=== PATIENT | female | born 1980 | race Two or more races ===

== ENCOUNTER 2017-02-05 16:35 | Outpatient (CLI) | payer OTHER ==
[~2017-02-05] VITALS: Ht 156.2 cm; Wt 102.7 kg
[2017-02-05 16:55] VITALS: BP 131/75
[2017-02-05] MEDS ORDERED: METF10002 PO (17:05)
[2017-02-05] MEDS ORDERED: PREN1TAB84 PO (17:06)
[2017-02-05] MEDS ORDERED: INSU200I SQ-INSULIN ×3 (17:08→17:10)
[2017-02-05] MEDS ORDERED: HUM100IN4 SC ×2 (17:12→17:13)
== END 2017-02-05 18:23 | disposition home or self-care (01) ==
LOC: LDOP 16:35
PROVIDERS: ATTEND Obstetrics & Gynecology
DX: O09.893 Supervision of other high risk pregnancies, third trimester (principal); O24.113 Pre-existing type 2 diabetes mellitus, in pregnancy, third trimester; O99.333 Smoking (tobacco) complicating pregnancy, third trimester; F17.200 Nicotine dependence, unspecified, uncomplicated; Z3A.00 Weeks of gestation of pregnancy not specified
CPT/HCPCS: 59025; 99211; G0463

== ENCOUNTER 2019-05-28 18:50 | Emergency (ER) | payer OTHER ==
[~2019-05-28] VITALS: Ht 154.9 cm; Wt 83.1 kg
[~2019-05-28 18:50] MED LIST: DOCU-131 PO; HUM100IN4 SC; IBUP-1222 PO; INSU200I SQ-INSULIN; METF10002 PO; NPH,100I4 SQ-INSULIN; OXYC-302 PO; PREN1TAB84 PO
[2019-05-28] MEDS ORDERED: SODIUM CHLORIDE FLUSH 10ML SYR IVF ONE (19:30)
[2019-05-28 20:30] LABS: BASOPHILS # (AUTO) 0.07 x10^3/uL (0-0.1); BASOPHILS % (AUTO) 1 % (0-1); EOSINOPHILS # (AUTO) 0.26 x10^3/uL (0-0.4); EOSINOPHILS % (AUTO) 3 % (1-7); LYMPHOCYTES # (AUTO) 1.93 x10^3/uL (1-3.4); LYMPHOCYTES % (AUTO) 22 % (22-44); MD NO; MEAN CORPUSCULAR HEMOGLOBIN 30.9 pg (27.0-34.8); MEAN CORPUSCULAR HGB CONC 33.1 g/dL (32.4-35.8); MEAN CORPUSCULAR VOLUME 93.4 fL (80-100); MEAN PLATELET VOLUME 7.9 fL (7.4-10.4); MONOCYTES # (AUTO) 0.47 x10^3/uL (0.2-0.8); MONOCYTES % (AUTO) 5 % (2-9); NEUTROPHILS # (AUTO) 6.12 x10^3/uL (1.8-6.8); NEUTROPHILS % (AUTO) 69 % (42-75); PLATELET COUNT 291 x10^3/uL (130-400); RED BLOOD COUNT 4.56 x10^6/uL (3.82-5.3); RED CELL DISTRIBUTION WIDTH 15.8 % (9.6-15.2)
[2019-05-28 20:39] LABS: ALBUMIN 3.4 g/dL (3.4-5.0); ANION GAP 8 mmol/L (5-15); CALCIUM 8.9 mg/dL (8.5-10.1); CHLORIDE 106 mmol/L (98-107); CREATININE 0.51 mg/dL (0.55-1.02)
--- NOTE | 2019-05-28 21:25 | NUR ---
CALLED FOR REPEAT VS, NO ANSWER.
--- NOTE | 2019-05-28 22:00 | NUR ---
CALLED FOR REPEAT VS, NOT FOUND AT THIS TIME
--- NOTE | 2019-05-28 22:34 | NUR ---
TO [facility] FROM LOBBY. NAOMI.
--- NOTE | 2019-05-28 23:03 | NUR ---
FIRST CONTACT WITH PT. PT HERE WITH COMPLAINT BUMP INSIDE NOSE ONSET 4 DAYS AGO, GIVEN ABX. PT C/O LEFT SIDED FACIAL SWELLING AND PAIN. PT'S AOX4. RESPS EVEN AND UNLABORED. BP/SPO2 MONITORS IN PLACE. CALL LIGHT WITHIN REACH. EDMD AT BEDSIDE TO EVALUATE AT THIS TIME.
--- NOTE | 2019-05-28 23:36 | NUR ---
PT IN CT NOW.
--- NOTE | 2019-05-28 23:55 | NUR ---
PT BACK TO ROOM FROM CT.
[2019-05-29] MEDS ORDERED: CLINDAMYCIN 150 MG/ML, 6ML ONE (00:18)
[2019-05-29 00:27] VITALS: BP 117/78
[2019-05-29] MEDS ORDERED: CLINDAMYCIN 150 MG/ML, 6ML IM ONE (00:30)
--- NOTE | 2019-05-29 00:32 | NUR ---
PT MEDICATED PER EMAR. PT TOLERATED WELL.
--- NOTE | 2019-05-29 00:35 | NUR ---
PT GIVEN DC INSTRUCTIONS AND SCRIPT. PT EDUCATED REGARDING DC MEDICATION. PT'S AOX4. RESPS EVEN AND UNLABORED. NO ACUTE DISTRESS AT DC. PT AMB TO DC WITH STEADY GAIT.
[2019-05-29] MEDS ORDERED: OMNIPAQUE 350 MG/ML, 100ML BOTTLE ONE (05:46)
== END 2019-05-29 00:37 | disposition home or self-care (01) ==
LOC: ED 05-29 00:26
DX: J34.0 Abscess, furuncle and carbuncle of nose (principal)
CPT/HCPCS: 36415; 70487; 80048; 82040; 84703; 85025; 96372; 99284; Q9967; S0077